=== PATIENT | female | born 1965 | race Caucasian/White ===

== ENCOUNTER 2020-10-28 07:23 | Observation (INO) | payer MEDICARE ==
[2020-10-24 10:30] VITALS: BMI 21.4
[2020-10-28] MEDS ORDERED: Morphine 2 MG/ML VIAL ONE (08:55)
[2020-10-28] MEDS ORDERED: Midazolam HCl 2 mg/2 ml Vial ONE (08:55)
[2020-10-28] MEDS ORDERED: Fentanyl 100 MCG/2 ML VIAL ONE ×3 (08:55→11:33)
[2020-10-28] MEDS ORDERED: Ketorolac Tromethamine 30 MG/ML VIAL ONE (10:22)
[2020-10-28] MEDS ORDERED: Dexamethasone 20 MG/5 ML VIAL ONE (10:22)
[2020-10-28] MEDS ORDERED: Ondansetron PF 4 MG/2 ML Vial ONE (10:22)
[2020-10-28] MEDS ORDERED: Rocuronium Bromide 10 MG/ML (10ML VIAL) ONE (10:22)
[2020-10-28] MEDS ORDERED: Glycopyrrolate 0.2 MG/ML 5 ML SYRINGE ONE (10:22)
[2020-10-28] MEDS ORDERED: ePHEDrine 50 MG/ML VIAL ONE (10:22)
[2020-10-28] MEDS ORDERED: PROPOFOL 200 MG/20 ML VIAL ONE (10:22)
[2020-10-28] MEDS ORDERED: diphenhydrAMINE 50 MG/ML VIAL ONE (10:22)
[2020-10-28] MEDS ORDERED: Morphine 10 MG/ML VIAL ONE (10:44)
--- NOTE | 2020-10-28 10:48 | OP ---
DATE OF PROCEDURE: 10/28/2020 RESIDENTIAL SUBCONTRACTOR: Olga Gallo PA-C PROCEDURES PERFORMED: Removal of hardware, L4-5; exploration of spinal fusion, L4-5; L3-4 laminectomy; L3-4 posterolateral arthrodesis; pedicle screw instrumentation, L3-4; demineralized bone matrix; local morselized autograft. DESCRIPTION OF PROCEDURE: The patient was brought to the operating room and intubated. She was rolled in a prone position on gel-filled chest rolls. The previous incision was reopened, extended superiorly exposing L3 through L5. We did identify the wires from her spinal cord stimulator, and these were protected and deflected anteriorly for the course of the surgery. After complete exposure of L3 through L5, we removed the hardware at L4-5 without difficulty. We performed a L3-4 laminectomy. We then placed pedicle screws at L3 bilaterally using lateral fluoroscopic guidance. We explored the spinal fusion at L4-L5 and it seemed to be solid. We next placed the kelsie between L3 and L4, secured by nuts, which were final tightened. The wound was then extensively irrigated, and immaculate hemostasis was secured. A combination of demineralized bone matrix and local morselized autograft was laid over the lamina and posterolateral surfaces at L3-4 for the purpose of arthrodesis. Vancomycin powder was applied, and the wound was closed in anatomic layers. Job ID: [id number]
[2020-10-28] MEDS ORDERED: tiZANidine HCl 4 MG TAB ONE (11:27)
[2020-10-28] MEDS ORDERED: HYDROcodone/Acetaminophen 10/325 mg Tablet ONE (11:27)
[2020-10-28] MEDS ORDERED: Morphine 4 MG/ML VIAL ONE (11:43)
[2020-10-28] MEDS ORDERED: Ondansetron PF 4 MG/2 ML Vial IM PRN (13:57)
[2020-10-28] MEDS ORDERED: oxyCODONE 5 MG TAB PO PRN (13:59)
[2020-10-28] MEDS ORDERED: HYDROcodone/Acetaminophen 10/325 mg Tablet PO PRN (14:00)
[2020-10-28] MEDS ORDERED: Morphine 4 MG/ML VIAL SLOW IVP PRN (14:00)
[2020-10-28] MEDS ORDERED: tiZANidine HCl 4 MG TAB PO PRN (14:00)
[2020-10-28] MEDS ORDERED: traMADol HCl 50 MG TAB PO PRN ×2 (14:00)
[2020-10-28] MEDS ORDERED: Promethazine 25 MG TAB PO PRN (14:00)
[2020-10-28] MEDS ORDERED: Promethazine HCl 25 MG/ML VIAL IM PRN (14:00)
[2020-10-28] MEDS ORDERED: Promethazine HCl 12.5 MG SUPP PR PRN (14:00)
[2020-10-28] MEDS ORDERED: Bisacodyl 10 MG SUPP PR PRN (14:00)
[2020-10-28] MEDS ORDERED: Mag-Al 1200 mg/1200 mg/30 ML UDCUP PO PRN (14:00)
[2020-10-28] MEDS ORDERED: Morphine 2 MG/ML VIAL SLOW IVP PRN (14:00)
[2020-10-28] MEDS: HYDROcodone/Acetaminophen 10/325 mg Tablet PO PRN ×2 (16:31→20:46)
[2020-10-28] MEDS: Sodium Chloride 0.9% 1,000 ML IV SCH (16:45)
[2020-10-28] MEDS ORDERED: Topiramate 25 MG TAB PO SCH (21:45)
[2020-10-29] MEDS: Sodium Chloride 0.9% 1,000 ML IV SCH (05:09)
[2020-10-29] MEDS: HYDROcodone/Acetaminophen 10/325 mg Tablet PO PRN ×2 (05:11→10:27)
--- NOTE | 2020-10-29 07:07 | DIS ---
DATE OF ADMISSION: 10/28/2020 DATE OF DISCHARGE: 10/29/2020 PROCEDURE: Removal of hardware L3-L4 decompression and fusion. DISCHARGE SUMMARY: Mrs. Rai is a 55-year-old female recently evaluated in our office for progressive back pain. She was found to have increased degenerative changes above her prior fusion at L3-L4. She underwent removal of hardware and extension of her lumbar fusion at L3-L4 on 10/28/2020. Following the surgery, she was transitioned to the Med/Surg floor, where her pain has been well controlled with p.o. medications. She is tolerating a regular diet, and she is voiding appropriately. She has been ambulating easily in the halls. We will go ahead and dismiss the patient to home. She has postoperative pain prescriptions provided by her pain management physician [facility]. These are oxycodone and morphine extended release. I have provided her with script for Keflex as well. I will follow up with the patient in 2 weeks. BMP was checked prior to discharge. Job ID: [id number]
[2020-10-29 07:58] VITALS: BP 104/61; TEMP 97.8
[2020-10-29] MEDS ORDERED: Topiramate 25 MG TAB PO SCH (21:00)
== END 2020-10-29 10:58 | disposition home or self-care (01) ==
LOC: SDC 07:23 → SURG B 11:08
PROVIDERS: ADMIT Neurological Surgery; ATTEND Neurological Surgery
PROC: 0SG0071 Fusion of Lumbar Vertebral Joint with Autologous Tissue Substitute, Posterior Approach, Posterior Column, Open Approach (ICD-10-PCS; principal; 2020-10-28)
DX: M48.062 Spinal stenosis, lumbar region with neurogenic claudication (principal); M43.16 Spondylolisthesis, lumbar region; Z79.891 Long term (current) use of opiate analgesic; Z79.899 Other long term (current) drug therapy; Z88.5 Allergy status to narcotic agent; Z88.6 Allergy status to analgesic agent; Z88.8 Allergy status to other drugs, medicaments and biological substances; Z91.030 Bee allergy status; Z98.1 Arthrodesis status
CPT/HCPCS: 20930; 20936; 22612; 22840; 76000; 97116; 97139; C1713 ×4; C1768; J2270 ×2; 96374; 96376; G0378; J0690; J1100; J1200; J1885; J2250; J2405; J2704; J3010; J3370; J3490

== ENCOUNTER 2020-11-12 12:48 | Outpatient (CLI) | payer MEDICARE ==
--- NOTE | 2020-11-12 13:32 | RAD ---
LUMBAR SPINE SERIES TWO VIEWS: 11/11/20 HISTORY: Follow-up surgery. Surgical alexander are seen over the midline. Bilateral pedicle screws with vertical connecting rods ar e seen at the L3 and L4 levels also bilateral pedicle screws at L5. Fractured screw is seen overlying the L5-S1 level. This is in the facet region on the left. IMPRESSION: Postoperative changes of the spine. No comparison views available. POS: OFF
== END 2020-11-12 12:49 | disposition home or self-care (01) ==
LOC: TBSIIMAG 12:48
PROVIDERS: ATTEND Neurological Surgery
DX: M43.16 Spondylolisthesis, lumbar region (principal); Z98.890 Other specified postprocedural states
CPT/HCPCS: 72100